=== PATIENT | female | born 1955 | race Caucasian/White ===

== ENCOUNTER 2019-01-12 20:48 | Inpatient (IN) | payer OTHER ==
[~2019-01-12] VITALS: Ht 154.9 cm; Wt 93.0 kg
[~2019-01-12 20:48] MED LIST: ATENOLOL 100MG100 M2; BACTRIM DS TAB1 EACH; CARDIZEM CD360 MG; FLOMAX PO; LEXAPRO 10 MG T10 MG; NORCO 5-325 TA1 EACH PO; PHENAZOPYRIDIN200 M2
[2019-01-12 23:12] VITALS: BP 120/71
[2019-01-12 23:34] LABS: HEMATOCRIT 43.5 % (37.0-47.0); HEMOGLOBIN 14.8 gm/dL (12.0-15.0); MCH 29.2 pg (26.0-34.0); RBC 5.06 mil/uL (4.20-5.00); RDW 12.7 % (10.5-14.5); WBC 9.1 thou/uL (4.0-11.0)
[2019-01-12 23:48] LABS: PROTIME 10.4 Seconds (9.3-11.4)
[2019-01-13] VITALS (16 sets, daily range): BP systolic 115–149; BP diastolic 70–91
[2019-01-13] MEDS ORDERED: NORVASC5 MG PO (00:45)
[2019-01-13] MEDS ORDERED: ATORVASTATIN CA40 MG PO (00:45)
[2019-01-13] MEDS ORDERED: CYCLOBENZAPRINE5 MG PO (00:46)
[2019-01-13] MEDS ORDERED: HYDROCHLOROTHIA25 M2 PO (00:46)
[2019-01-13] MEDS ORDERED: ZESTRIL40 MG PO (00:47)
[2019-01-13] MEDS ORDERED: OMEPRAZOLE40 MG PO (00:48)
[2019-01-13] MEDS ORDERED: LIDOCAINE PAIN1 EACH TP (00:49)
[2019-01-13] MEDS ORDERED: NAPROSYN500 MG PO (00:49)
--- NOTE | 2019-01-13 05:00 | NUR ---
PT ARRIVED TO THE UNIT FROM [facility] AT 2245. VSS. PT A&0X4. SHE WAS ON A HEPARIN DRIP AT 7ML/HR. PT PLACED ON THE HEPARIN PROTOCOL BY MIKEY GONZALES, APTT CHECKED, AND DOSED PER HEPARIN FLOW SHEET DOSING PROTOCOL. NEXT APTT DUE AT 0745. DR BENITEZ NOTIFIED PRIOR TO PT'S ARRIVAL HE ORDERED EKG AND TROPONIN WHEN THE PT ARRIVES AND IN THE AM. HE WAS NOTIFIED OF TROP AND EKG RESULTS AND HE GAVE ORDERS FOR 325MG ASA, 80MG LIPITOR AND TO OBTAIN CONSENT FOR HEART CATH THIS AM. PT HAS BEEN NPO SINCE MIDNIGHT. PT WAS TEARFUL ABOUT PLANNED INTERVENTION BUT WAS REASSURED AND TYLENOL PM WAS GIVEN FOR SLEEP PER HER REQUEST. PT RESTED WELL ALL NIGHT. NO COMPLAINTS OF DISTRESS OR CHEST PAIN SINCE ARRIVAL ON THE UNIT SHE IS STABLE, WILL CONTINUE TO MONITOR PER POC.
--- NOTE | 2019-01-13 07:22 | EKG ---
[address] [address] ELECTROCARDIOGRAM REPORT Name: CARBALLOLEANNA Room #: 207- ADM IN M.R.#: [id number] ������������������ Admission: 01/12/19 ������������������ Attend Phys: Waldo Yang MD Discharge: ������������������ Date of : 55 Report #: [id number] ����������������������������������������������������������������� [id number] THIS REPORT FOR: //name// [facility] Test Date: 2019-01-12 Test Time: 23:15:13 Pat Name: LEANNA CARBALLO Department: Room: 207 Gender: F Prepress Manager: Ramon : 1955 Requested By: Tony Hall Order Number: [id number] MD: Humza Theodore Measurements Intervals [place] Rate: 68 P: 35 DE: 143 QRS: -16 QRSD: 86 T: 24 QT: 419 QTc: 446 Interpretive Statements Sinus rhythm Nonspecific ST segment abnormality Compared to ECG 02/15/2002 19:24:[address] segment abnormality is now present Electronically Signed On 01-13-2019 7:22:08 CDT by Humza Theodore [email or web address] ��������������������������������������������� <ELECTRONICALLY SIGNED> ���������������������������������������� By: Humza Theodore MD, [facility] ��������������������������������������������� 01/13/19 0722 2315 2315 Humza Theodore MD, [facility] /EPI
[2019-01-13 08:25] LABS: CREATININE 0.6 mg/dL (0.6-1.0)
--- NOTE | 2019-01-13 12:53 | 2DMMODE ---
[place] [address] [facility] [place] [address] 2 D/M-MODE ECHOCARDIOGRAM Name: CARBALLOLEANNA Room #: 207-P ADM IN M.R.#: [id number] ������������� Admission: 01/12/19 ������������� Attend Phys: Waldo Yang MD Discharge: ��� ������������� ��� Date of : 55 Date of Service: 01/13/19 1253 �� Report #: [id number] �������� ��������������������������������������������[id number] THIS REPORT FOR: //name// APPROVED REPORT Study performed: 01/13/2019 11:45:49 EXAM: Comprehensive 2D, Doppler, and color-flow Echocardiogram Patient Location: Bedside Room #: [facility] Status: routine BSA: 1.89 HR: 71 bpm BP: 146/89 mmHg Rhythm: NSR Other Information Study Quality: Adequate Technically limited study due to inability to position patient, post cath. Indications Non STEMI CAD Hypertension/HDD 2D Dimensions RVDd: 30.08 mm IVSd: 11.18 (7-11mm) LVOT Diam: 20.09 (18-24mm) LVDd: 46.53 mm PWd: 9.68 (7-11mm) Ascending Ao: 23.60 (22-36mm) LVDs: 33.37 (25-40mm) Aortic Root: 28.22 mm IVC: 14.00 mm Volumes Left Atrial Volume (Systole) Single Plane 4CH: 45.23 mL Single Plane 2CH: 52.51 mL LA ESV Index: 27.00 mL/m2 Aortic Valve AoV Peak Charli.: 1.73 m/s AO Peak Gr.: 11.97 mmHg LVOT Max P.37 mmHg LVOT Max V: 0.92 m/s REGI Vmax: 1.68 cm2 [facility] [place] [address] [place] [address] 2 D/M-MODE ECHOCARDIOGRAM Name: LEANNA CARBALLO Dheeraj Room #: 207-[facility] IN [facility]#: [id number] ������������� Admission: 01/12/19 ������������� Attend Phys: Waldo Yang MD Discharge: ��� ������������� ��� Date of : 55 Date of Service: 01/13/19 1253 �� Report #: [id number] �������� ��������������������������������������������[id number] Mitral Valve E/A Ratio: 0.8 MV Decel. Time: 249.39 ms MV E Max Charli.: 0.86 m/s MV A Charli.: 1.03 m/s MV PHT: 72.32 ms IVRT: 110.73 ms Pulmonary Valve PV Peak Charli.: 1.11 m/s PV Peak Gr.: 4.98 mmHg Pulmonary Vein P Vein S: 0.42 m/s P Vein A: 0.19 m/s P Vein D: 0.30 m/s P Vein A Dur.: 101.5 msec P Vein S/D Ratio: 1.40 Tricuspid Valve TR Peak Charli.: 2.73 m/s RAP Estimate: 5.00 mmHg TR Peak Gr.: 29.81 mmHg PA Pressure: 35.00 mmHg Left Ventricle The left ventricle is normal size. There is normal LV segmental wall motion. There is normal left ventricular wall thickness. The left ventricular systolic function is normal. The left ventricular ejection fraction is within the normal range. LVEF is 55-60%. Mild diastolic dysfunction Right Ventricle The right ventricle is normal size. The right ventricular systolic function is normal. Atria The left atrium size is normal. The right atrium size is normal. Aortic Valve Aortic valve is mildly calcified, trileaflet. Trace aortic regurgitation. There is no aortic valvular stenosis. Mitral Valve The mitral valve is normal in structure. Trace to mild mitral regurgitation. No evidence of mitral valve stenosis. Tricuspid Valve The tricuspid valve is normal in structure. Mild tricuspid [address] [address] 2 D/M-MODE ECHOCARDIOGRAM Name: STAR CARBALLOKathleen Esqueda Room #: 207-P [facility] IN [facility]#: [id number] ������������� Admission: 01/12/19 ������������� Attend Phys: Waldo Yang MD Discharge: ��� ������������� ��� Date of : 55 Date of Service: 01/13/19 1253 �� Report #: [id number] �������� ��������������������������������������������[id number] regurgitation. PAP is estimated at 35 mmHg. Pulmonic Valve The pulmonary valve is normal in structure. There is no pulmonic valvular regurgitation. Great Vessels The aortic root is normal in size. The ascending aorta is normal in size. IVC is normal in size and collapses >50% with inspiration. Pericardium There is no pericardial effusion. <Conclusion> The left ventricular systolic function is normal. There is normal LV segmental wall motion. LVEF is 55-60%. Mild diastolic dysfunction Aortic valve is mildly calcified, trileaflet. Trace aortic regurgitation, no stenosis. The mitral valve is normal in structure. Trace to mild mitral regurgitation. Mild tricuspid regurgitation. Pulmonary artery pressure estimated at 35 mmHg. There is no pericardial effusion. ��������������������������������������������� <ELECTRONICALLY SIGNED> ���������������������������������������� By: Humza Theodore MD, FACC ��������������������������������������������� 01/13/19 1253 1253 1253 Humza Theodore MD, FACC /INF
[2019-01-13 17:15] LABS: URINE BILIRUBIN NEGATIVE (Negative); URINE BLOOD NEGATIVE (Negative); URINE CLARITY CLEAR; URINE COLOR YELLOW; URINE GLUCOSE-RANDOM* NEGATIVE (Negative); URINE KETONES NEGATIVE (Negative); URINE LEUKOCYTES-REFLEX NEGATIVE (Negative); URINE NITRITE-REFLEX NEGATIVE (Negative); URINE PROTEIN (DIPSTICK) NEGATIVE (Negative); URINE UROBILINOGEN 0.2 E.U./dl (0.2-1.0)
--- NOTE | 2019-01-13 17:40 | NUR ---
ASSESSMENT DOCUMENTED. PT ALERT AND ORIENTED. VSS. HAD CARDIAC CARTH THIS AM. NO INTERVENTION DONE. PLAN TO HAVE CABG ON THURSDAY. HEPARIN DRIP D/C. PRN PAIN MED GIVEN FOR JOSEPH WITH PARTIAL RELIEF. WILL CONTINUE TO MONITOR.
[2019-01-13 18:48] LABS: ABSOLUTE NEUTROPHILS 4.7 thou/uL (1.4-8.2); BASOPHILS 0.7 % (0.0-2.0); EOSINOPHILS 2.1 % (0.0-3.0); HEMATOCRIT 41.6 % (37.0-47.0); HEMOGLOBIN 13.8 gm/dL (12.0-15.0); LYMPHOCYTES 29.6 % (24.0-44.0); MCH 28.8 pg (26.0-34.0); MCHC 33.2 g/dL (28.0-37.0); MCV 86.6 fL (80.0-100.0); MONOCYTES 4.9 % (1.0-8.0); PLATELET COUNT 225 thou/uL (150-400); POLYS 62.7 % (36.0-66.0); RDW 13.1 % (10.5-14.5); WBC 7.5 thou/uL (4.0-11.0)
[2019-01-13 19:18] LABS: ALBUMIN 3.5 g/dL (3.4-5.0); CREATININE 0.9 mg/dL (0.6-1.0); POTASSIUM 3.9 mmol/L (3.5-5.1); TOTAL BILIRUBIN 0.6 mg/dL (<0.1-1.0); TOTAL PROTEIN 6.9 g/dL (6.4-8.2)
[2019-01-13 23:07] LABS: GLYCOHEMOGLOBIN (HGB A1C) 5.7 % (4.8-5.6)
[2019-01-14 00:11] VITALS: BP 114/66
[2019-01-14 04:40] VITALS: BP 114/65
[2019-01-14 05:32] LABS: CHOLESTEROL 113 mg/dL (<200); HDL CHOLESTEROL 38 mg/dL (>40); LDL CHOLESTEROL 50 mg/dL (<100); TRIGLYCERIDE 125 mg/dL (<150); VLDL 25 mg/dL (<40)
[2019-01-14 05:57] LABS: SERUM ASSESSMENT Clear
--- NOTE | 2019-01-14 06:09 | NUR ---
ASSUMED PT CARE AT 1900. VSS. PT A&OX4. FAMILY IN ROOM AFT SHIFT CHANGE. PT IS ANXIOUS ABOUT UP COMING OPEN HEART; FREQUENT REASSURANCE NEEDED. PT COMPLAINED OF TENDERNESS IN RIGHT GROIN, TYLENOL GIVEN, COMPLETE PAIN RELEIF REPORTED. R GROIN SITE CDI. PT IS STABLE, NO COMPLAINTS OF PAIN OR DISTRESS, WILL CONTINUE TO MONITOR PER POC.
[2019-01-14 07:46] VITALS: BP 130/83
[2019-01-14 09:38] LABS: HEMATOCRIT 44.4 % (37.0-47.0); HEMOGLOBIN 14.8 gm/dL (12.0-15.0); MCH 28.9 pg (26.0-34.0); MCHC 33.3 g/dL (28.0-37.0); MCV 86.6 fL (80.0-100.0); RBC 5.12 mil/uL (4.20-5.00); RDW 12.8 % (10.5-14.5); WBC 7.3 thou/uL (4.0-11.0)
[2019-01-14 09:54] LABS: APTT 29.7 Seconds (24.5-32.8); PROTIME 10.1 Seconds (9.3-11.4)
--- NOTE | 2019-01-14 14:45 | NUR ---
Case opened to follow for dc planning. Medical Management Specialist visited with the pt at bedside. She is a&ox4 and indicates that she lives with her boyfriend in [place], [place]. They have ramp to enter the home and everything is on the main level. She denies any dme or hh history. She took early shelter and is . She drives and was indep with gait and adl's. She reports that her pcp is [facility] in [place](Dr. Dudley). Pt to have CABG on Thursday and she is anxious about surgery. Support provided. AD/DPOA information discussed and provided as well. She would like her dtr Mabel to be her dpoa if needed. She will ask for a notary if she wishes to complete prior to her surgery. She indicates that her pcp told her she needed to see a body maker machine setter but her insurance denied the request. She is planning on staying with her dtr for 2-3 wks at dc. Her dtr lives in [place] and can assist with f/u appts. Cm role introduced. Pt hopeful she will be able to dc home with outpt f/u. Her insurance plan has limited benefits/coverage. Insurance would need to be contacted should the pt need HH, rehab or snf. Will follow along.
[2019-01-14 16:38] VITALS: BP 148/97
--- NOTE | 2019-01-14 18:09 | CATHLAB ---
[facility] [place] [address] INVASIVE PROCEDURE REPORT Name: LEANNA CARBALLO Dheeraj Room #: 207-P [facility] IN ..#: [id number] ������������� Admission: 01/12/19 ������������� Attend Phys: Waldo Yang MD Discharge: ��� ������������� ��� Date of : 55 Date of Service: 01/14/19 1809 �� Report #: [id number] �������� ��������������������������������������������[id number] THIS REPORT FOR: //name// APPROVED REPORT Study performed: 01/13/2019 09:09:20 Patient Details The patient is a 63 year-old female Event Personnel Tony Hall Branch Billing Payroll Clerk, Sarahy Michaels RTR, Eren Gaxiola Roberta Monitor, Yina Strauss RN RN, Dionisio Jaime ruching machine operator Performed Left Heart Cath w/or w/o Coronaries [id number] [facility] Indication Chest pain Procedure Narrative The Right Groin^ was infiltrated with 1% Lidocaine subcutaneous anesthesia. A PINNACLE 6FR Sheath #[id number] sheath was inserted into the RFA 6F^. Coronary angiography was performed using coronary diagnostic catheters. The right coronary system was accessed and visualized with a JR4 catheter. The left coronary system was accessed and visualized with a JL4 catheter. The left ventricle was accessed and visualized with a PIGTAIL catheter. Closure device was deployed with a Fr MYNXGRIP 6/7F #[id number]. The patient tolerated the procedure well and there were no complications associated with the procedure. There was no hematoma. Intraoperative Conscious Sedation Sedation start time: 09 Case end Time: 1010 Fentanyl 100 mcg Versed 2 mg Fluoro Time: 2.51 minutes Dose: DAP 8199.80 cGycm2 Contrast Type and Amount: Omnipaque 140 ml Hemodynamics The aortic pressure is 133/67 mmHg with a mean of 98 mmHg. The left ventricular pressure is 136/9 mmHg with a mean of mmHg. The left [facility] [place] [address] [place] [address] INVASIVE PROCEDURE REPORT Name: LEANNA CARBALLO Room #: 207-P [facility] IN ..#: [id number] ������������� Admission: 01/12/19 ������������� Attend Phys: Waldo Yang MD Discharge: ��� ������������� ��� Date of : 55 Date of Service: 01/14/19 1809 �� Report #: [id number] �������� ��������������������������������������������[id number] ventricular end diastolic pressure is 20 mmHg. Conclusion #1 short left main with evidence of distal calcification giving rise to LAD and circumflex #2 heavily calcified proximal LAD. Diffuse disease distally less calcification the distal half of this vessel. 70-80% proximal eccentric lesions are noted #3 subtotal ostial circumflex which appears to be a large area of calcification calcium deposit filling a large OM branch slowly. Does not appear to be thrombus I would've perceive this to be calcification involving the ostial subtotal segment #4 dominant right coronary artery proximal calcification and mid vessel calcification is noted but not occlusive giving rise to a posterior lateral branch which widely patent and a high-grade proximal PDA within the mid distal PDA is preserved collaterally filling the OM branch. #5 left internal mammary injection was performed this is a widely patent large vessel. #6 normal left ventricular size and systolic function is normal EF 60% #7 abdominal aorta with mild plaquing and calcification no aneurysm or occlusive disease renal arteries and iliac system appear widely patent Recommendations and plan: Patient will need revascularization by bypass due to significant proximal calcification. These lesions would not be amenable or do well with stenting. Relatively good decent mid to distal targets are noted for bypass. Transfer to CCU pain-free hemodynamically stable. CV surgical consultation. ��������������������������������������������� <ELECTRONICALLY SIGNED> ���������������������������������������� By: Tony Hall MD, FACC ��������������������������������������������� 01/14/191808 08 08 Tony Hall MD, FACC /INF
--- NOTE | 2019-01-14 18:16 | NUR ---
ASSUMED CARE @ 0645. PT ALERT AND ORIENTED. VSS. RECEIVED PRN PAIN MED FO JOSEPH WITH PARTIAL RELIEF. HEPARIN DRIP STARTED. UP ADLIB. NO CARDIAC DISTRESS NOTED. WILL CONTINUE TO MONITOR.
[2019-01-14 19:36] VITALS: BP 157/79
[2019-01-15 01:10] LABS: GLYCOHEMOGLOBIN (HGB A1C) 5.8 % (4.8-5.6)
--- NOTE | 2019-01-15 03:02 | NUR ---
ASSUMED PT CARE AT 1900. PT A/OX4, VITAL SIGNS STABLE, ASSESSMENT CHARTED. NO COMPLAINTS OF PAIN/CHEST PAIN. DISCUSSED IMPORTANCE OF CABG. PT STILL A LITTLE NERVOUS ABOUT PROCEDURE. PT OTHERWISE RESTED ELL THROUGH THE NIGHT. PROGRESSING TOWARD PLAN OF CARE. WILL CONTINUE TO MONITOR.
[2019-01-15 04:07] VITALS: BP 127/64
[2019-01-15 05:33] LABS: HEMATOCRIT 43.1 % (37.0-47.0); HEMOGLOBIN 14.6 gm/dL (12.0-15.0); MCHC 33.8 g/dL (28.0-37.0); MCV 85.7 fL (80.0-100.0); RBC 5.02 mil/uL (4.20-5.00); RDW 12.7 % (10.5-14.5); WBC 8.7 thou/uL (4.0-11.0)
[2019-01-15 07:46] VITALS: BP 148/86
[2019-01-15 11:38] VITALS: BP 155/94
[2019-01-15 16:30] VITALS: BP 151/96
--- NOTE | 2019-01-15 18:22 | NUR ---
PT ALERT AND ORIENTED. VSS. RECEIVED PRN PAIN MED FOR JOSEPH WITH RELIEF. NO CARDIAC DISTRESS NOTED. WILL CONTINUE TO MONITOR.
[2019-01-15 20:30] VITALS: BP 147/94
[2019-01-16] VITALS (7 sets, daily range): BP systolic 123–185; BP diastolic 67–101
--- NOTE | 2019-01-16 03:18 | NUR ---
ASSUMED PT CARE AT 1900. PT A/OX4, VITAL SIGNS STABLE, ASSESSMENT CHARTED. NO COMPLAINTS OF CHEST PAIN/PAIN. BATH PROVIDED. HEPARIN DRIP MAINTAINED. PT RESTED WELL THROUGH THE NIGHT. PROGRESSING TOWARD PLAN OF CARE. WILL CONTINUE TO MONITOR.
--- NOTE | 2019-01-16 12:06 | HC ---
[facility] [place] [address] CONSULTATION Name: CARBALLOLEANNA Silvestre Dheeraj Room #: 207-P ADM IN M.R.#: [id number] Admission: 01/12/19 ������������������ Attend Phys: Waldo Yang MD Discharge: ������������������ Date of : 55 Report #: [id number] THIS REPORT FOR: //name// CC: [facility] physician/PCP Waldo Yang DATE OF SERVICE: 01/13/2019 We were asked by Dr. Hall to see the patient. HISTORY OF PRESENT ILLNESS: The patient is a 63-year-old with coronary artery disease. The patient states that she has had chest pain on and off for the last 2 years, but it has become a daily occurrence in the last 2 weeks. Specifically, the patient has chest pain with low levels of exertion. The patient does not describe rest pain to me. We note that cardiac catheterization today by Dr. Hall showed severe 3-vessel coronary artery disease, including 99% circumflex stenosis, 70% LAD and 90% PDA lesions. Left ventricular function looked satisfactory overall. We note that the patient presented to [place] with a non-STEMI infarct and was sent here following that for cardiac evaluation. PAST MEDICAL HISTORY: Past history is significant for hypertension and hyperlipidemia. FAMILY HISTORY: The patient states that family history is positive for coronary artery disease, in that mother had bypass surgery in her 60s. MEDICATIONS: Medications at home include amlodipine, atorvastatin, cyclobenzaprine, hydrochlorothiazide, Zestril, omeprazole, lidocaine topical, I believe, and Naprosyn. ALLERGIES: None known. REVIEW OF SYSTEMS: CONSTITUTIONAL: Denies fever. HEENT: No new problems with headaches, vision problems, hearing problems or sore throat. RESPIRATORY: No new shortness of breath. CARDIAC: As mentioned, chest pain. Denies palpitations. GASTROINTESTINAL: No nausea, vomiting or blood. GENITOURINARY: No urgency, frequency or blood. MUSCULOSKELETAL: No new bone or joint problems. SKIN: No rash or infection. NEUROLOGIC: No motor or sensory dysfunction. [facility] [address] [place] [address] CONSULTATION Name: LEANNA CARBALLO Dheeraj Room #: [address] [place] [address] IN .R.#: [id number] Admission: 01/12/19 ������������������ Attend Phys: Waldo Yang MD Discharge: ������������������ Date of : 55 Report #: [id number] PSYCHIATRIC: No history of psychosis, anxiety and depression. ENDOCRINE: No goiter. No tremors. PHYSICAL EXAMINATION: VITAL SIGNS: Temperature 36.5, heart rate 75, respiratory rate 18 and blood pressure 131/82. GENERAL: The patient is lying in bed, without distress, endomorphic habitus, obese. HEENT: Normocephalic. No scleral icterus, no arcus. Pupils are round and equal. Gaze conjugate. NECK: No mass, no bruit. CHEST: Clear to auscultation. HEART: Rhythm regular. No murmurs. ABDOMEN: Soft. No mass, no tenderness. EXTREMITIES: No clubbing, cyanosis or edema. A 1+ distal pulses, 2+ popliteal pulses. No obvious saphenous vein problems. PSYCHIATRIC: Shows insight into problem and seems appropriate as per affect. ASSESSMENT AND PLAN: The patient has important 3-vessel coronary artery disease. I agree that coronary artery bypass surgery is appropriate for this patient with 3-vessel disease. The risks and details of coronary artery bypass surgery were discussed. Risks include, but are not limited to bleeding, infection, anesthesia risks, heart and lung problems, stroke and . Options and alternatives were reviewed. We have organized surgery for Thursday and expect the patient will stay on heparin until then. Thank you for the consult. ��������������������������������������������� <ELECTRONICALLY SIGNED> ���������������������������������������� By: Ronal Worrell MD ��������������������������������������������� 01/16/19 1206 1625 1124 Ronal Worrell MD /nt
--- NOTE | 2019-01-16 17:04 | NUR ---
PT ALERT AND ORIENTED. VSS. DENIED HAVING PAIN. ON HEPARIN DRIP. ORDERS GIVEN TO DISCONTINUE HEPARIN WHEN PT GOES TO SURGERY IN THE MORNING. SEE DR. GARCIAS NOTE. CONSENT SIGNED. NO CONCERNS AT THIS TIME. WILL CONTINUE TO MONITOR.
[2019-01-17] VITALS (24 sets, daily range): BP systolic 92–156; BP diastolic 41–87
[2019-01-17 03:03] LABS: HEMATOCRIT 41.8 % (37.0-47.0); HEMOGLOBIN 14.2 gm/dL (12.0-15.0); MCH 29.2 pg (26.0-34.0); MCV 86.1 fL (80.0-100.0); RBC 4.86 mil/uL (4.20-5.00); RDW 12.8 % (10.5-14.5); WBC 7.1 thou/uL (4.0-11.0)
--- NOTE | 2019-01-17 05:24 | NUR ---
ASSUMED PT CARE AT 1900. PT A/OX4, A LITTLE ANXIOUS ABOUT SURGERY. VITAL SIGNS STABLE, WITH SBP ELEVATED. ASSESSMENT CHARTED. FIELD SPEC NOTIFIED OF ELEVATED BP, MEDICATION ORDERED WHICH SEEMED TO WORK WELL. AT ABOUT 2300, PT COMPLAINED OF EXTREME DIZZINESS AND UNABLE TO HOLS A STEADY GAIT. BP WAS IN THE 160'S, LOWER THAN WHAT IT WAS PRIOR TO WHEN NORVACS WAS GIVEN. PT WAS ASSITED TO BED AND ENCOURGAED NOT TO GET OUT OF BED IF DIZZINESS PERSISTS. FREQUENT BP CHESKS PERFORMED. BP SEEMED TO BE IMPROVING BUT PT KEPT COMPLAINING OF DIZZESS AND BEING NAUSEOUS. FIELD SPEC WAS CALLED AND NOTIFIED AGAIN. CT OF HEAD WAS ORDERED AND RESULTS WERE NORMAL. BLOOD SUGAR WAS 134. CHLOROHEXIDIN BATH GIVEN. PT WAS ABLE TO GET SOME SLEEP BUT DIZZINESS WORSENS WITH POSITION CHANGE. PT STATES THAT SHE SUSPECTS ITS FOOD POISSONING, FROM THE HOTDOG SHE ATE. PT NPO SINCE MIDNIGHT. PT CURRENTLY RESTING IN BED. ENCOURGAED TO CALL IF DIZZINESS CONTINUE TO PERSIST. WILL CONTINUE TO MONITOR.
[2019-01-17 12:30] LABS: HEMATOCRIT 27.6 % (37.0-47.0); MCH 29.9 pg (26.0-34.0); MCHC 34.5 g/dL (28.0-37.0); MCV 86.4 fL (80.0-100.0); RBC 3.19 mil/uL (4.20-5.00); RDW 12.7 % (10.5-14.5); WBC 16.5 thou/uL (4.0-11.0)
[2019-01-17 12:36] LABS: HEMOGLOBIN 9.5 gm/dL (12.0-15.0)
[2019-01-17 12:43] LABS: APTT 36.9 Seconds (24.5-32.8); FIBRINOGEN 216.8 mg/dL (210-360); PROTIME 16.7 Seconds (9.3-11.4)
[2019-01-17 12:45] LABS: INR 1.6
[2019-01-17 13:29] LABS: POC BE 1 mmol/L (-2.0 to +3.0); POC CA IONIZED 4.7 mg/dL (4.5-5.3); POC GLUCOSE 184 mg/dL (70-99); POC HCO3 26.6 mmol/L (22.0-26.0); POC HEMOGLOBIN 12.6 g/dL (12.0-15.0); POC POTASSIUM 4.6 mmol/L (3.5-5.1); POC SODIUM 137 mmol/L (136-145); POC pCO2 48.4 mmHg (35.0-45.0); POC pH 7.348 (7.360-7.450)
[2019-01-17 13:29] LABS: POC BE 1 mmol/L (-2.0 to +3.0); POC CA IONIZED 4.2 mg/dL (4.5-5.3); POC GLUCOSE 205 mg/dL (70-99); POC HCO3 25.4 mmol/L (22.0-26.0); POC HEMOGLOBIN 10.9 g/dL (12.0-15.0); POC POTASSIUM 4.5 mmol/L (3.5-5.1); POC SODIUM 136 mmol/L (136-145); POC pCO2 40.7 mmHg (35.0-45.0); POC pH 7.403 (7.360-7.450)
[2019-01-17 13:29] LABS: POC BE 1 mmol/L (-2.0 to +3.0); POC CA IONIZED 4.9 mg/dL (4.5-5.3); POC GLUCOSE 139 mg/dL (70-99); POC HCO3 25.4 mmol/L (22.0-26.0); POC HEMOGLOBIN 12.9 g/dL (12.0-15.0); POC POTASSIUM 4.6 mmol/L (3.5-5.1); POC SODIUM 138 mmol/L (136-145); POC pCO2 39.6 mmHg (35.0-45.0); POC pH 7.416 (7.360-7.450)
[2019-01-17 13:30] LABS: POC BE -4 mmol/L (-2.0 to +3.0); POC CA IONIZED 5.3 mg/dL (4.5-5.3); POC GLUCOSE 191 mg/dL (70-99); POC HCO3 21.2 mmol/L (22.0-26.0); POC HEMOGLOBIN 9.2 g/dL (12.0-15.0); POC POTASSIUM 3.7 mmol/L (3.5-5.1); POC SODIUM 139 mmol/L (136-145); POC pCO2 38.5 mmHg (35.0-45.0); POC pH 7.349 (7.360-7.450)
[2019-01-17 13:30] LABS: POC BE -1 mmol/L (-2.0 to +3.0); POC CA IONIZED 4.3 mg/dL (4.5-5.3); POC GLUCOSE 209 mg/dL (70-99); POC HCO3 23.8 mmol/L (22.0-26.0); POC HEMOGLOBIN 9.5 g/dL (12.0-15.0); POC POTASSIUM 4.2 mmol/L (3.5-5.1); POC SODIUM 137 mmol/L (136-145); POC pCO2 39.4 mmHg (35.0-45.0); POC pH 7.389 (7.360-7.450)
[2019-01-17 13:30] LABS: POC BE 1 mmol/L (-2.0 to +3.0); POC CA IONIZED 4.2 mg/dL (4.5-5.3); POC GLUCOSE 218 mg/dL (70-99); POC HCO3 25.4 mmol/L (22.0-26.0); POC HEMOGLOBIN 9.9 g/dL (12.0-15.0); POC POTASSIUM 4.2 mmol/L (3.5-5.1); POC SODIUM 138 mmol/L (136-145); POC pCO2 39.2 mmHg (35.0-45.0)
[2019-01-17 13:30] LABS: POC BE -5 mmol/L (-2.0 to +3.0); POC CA IONIZED 5.2 mg/dL (4.5-5.3); POC GLUCOSE 158 mg/dL (70-99); POC HEMOGLOBIN 9.9 g/dL (12.0-15.0); POC POTASSIUM 3.6 mmol/L (3.5-5.1); POC SODIUM 140 mmol/L (136-145); POC pCO2 38.6 mmHg (35.0-45.0); POC pH 7.344 (7.360-7.450)
[2019-01-17 13:36] LABS: PLATELET COUNT ND thou/uL (150-400)
[2019-01-17 14:12] LABS: MCH 29.1 pg (26.0-34.0); MCHC 33.9 g/dL (28.0-37.0); MCV 85.9 fL (80.0-100.0); RBC 4.07 mil/uL (4.20-5.00); RDW 12.3 % (10.5-14.5); WBC 19.8 thou/uL (4.0-11.0)
[2019-01-17 14:16] LABS: HEMOGLOBIN 11.9 gm/dL (12.0-15.0)
[2019-01-17 14:20] LABS: HCO3 22.1 mmol/L (22.0-26.0); PCO2 44.2 mmHg (35.0-45.0); PO2 85.2 mmHg (80.0-100.0); sO2 95.6 % (92.0-98.0)
[2019-01-17 14:21] LABS: pH 7.316 (7.360-7.450)
[2019-01-17 14:27] LABS: CALCIUM 9.2 mg/dL (8.5-10.1); CREATININE 0.9 mg/dL (0.6-1.0); POTASSIUM 4.1 mmol/L (3.5-5.1)
--- NOTE | 2019-01-17 15:07 | NUR ---
PT ARRIVED FROM OR AT 1350 WITH NURSING STAFF, ANETHSTESIA AND SURGEON. INSULIN GTT OFF. TITRATE SEDATION. START LEVO GTT FOR BP SUPPORT. PLACED ON MONITOR. SWAN NOT FLOATED INTO CORRECT POSITION, UNABLE TO GET CI,CO OR SVR. CHEST TUBES, LATERAL AND MEDS, WITH ADEQUATE OUTPUT ON -20 SUCTION. LABS SENT.
[2019-01-17 15:20] LABS: APTT 31.3 Seconds (24.5-32.8); INR 1.1; PROTIME 11.6 Seconds (9.3-11.4)
--- NOTE | 2019-01-17 15:20 | NUR ---
Received consult for diet education. S/P CABG on 01/17. Hx HTN, HLD. A1C is 5.8. Will follow up after transfer out ICU and more appropriate time for nutrition education.
[2019-01-17 19:53] LABS: BE(vivo) -2.9 mmol/L (-2 to +3); PCO2 33.7 mmHg (35.0-45.0); PO2 66.9 mmHg (80.0-100.0); pH 7.413 (7.360-7.450); sO2 93.7 % (92.0-98.0)
--- NOTE | 2019-01-17 20:06 | NUR ---
Pt started on CPAP trial at 1900. ABG drawn at 1745 within acceptable parameters, pH normal. Pt extubated at 1758.
[2019-01-18] VITALS (37 sets, daily range): BP systolic 79–143; BP diastolic 38–70
[2019-01-18 05:25] LABS: HEMATOCRIT 33.9 % (37.0-47.0); HEMOGLOBIN 11.3 gm/dL (12.0-15.0); MCHC 33.4 g/dL (28.0-37.0); RBC 3.89 mil/uL (4.20-5.00); RDW 12.7 % (10.5-14.5); WBC 15.3 thou/uL (4.0-11.0)
[2019-01-18 05:35] LABS: CALCIUM 8.7 mg/dL (8.5-10.1); CREATININE 0.9 mg/dL (0.6-1.0); MAGNESIUM 2.4 mg/dL (1.8-2.4); POTASSIUM 4.4 mmol/L (3.5-5.1)
--- NOTE | 2019-01-18 06:15 | NUR ---
END OF SHIFT SUMMARY: Pt slowly progressing toward goals. Pt extubated at 1958; has been on 8 L HFC most of the night but was increased to 10 L at 0600 due to persistent O2 sat of 88%. Pt now 91%. Pt c/o of pain most of night. PRN pain med given and though pt still rates pain 10/10, she appears more comfortable. Monitor remains sinus rhythm rate 70-80's. BP well controlled with Cardene at 5 mg/hr. [place] cath dc'd at 0500. Right radial arterial a-line intact with good wave form. Pt taking clear liquids well; Zofran given x1 for nausea around midnight with adequate relief obtained. Sternal and left leg drsgs remain clean, dry and intact. Mediastinal tubes x2 and left plural tube x1 remain patent to -20 cmH2O, no air leak or crepitus. Mediastinal tubes had 230 cc sero-sanguinous drainage, left plural had 76 cc of sero-sanguinous drainage. Urine output adequate, 600 cc this shift.
[2019-01-18 08:11] LABS: BE(vivo) -4.6 mmol/L (-2 to +3); HCO3 20.7 mmol/L (22.0-26.0); PCO2 39.4 mmHg (35.0-45.0); pH 7.339 (7.360-7.450); sO2 81.4 % (92.0-98.0)
[2019-01-18 08:13] LABS: PO2 47.8 mmHg (80.0-100.0)
--- NOTE | 2019-01-18 09:12 | EKG ---
[place] [address] [facility] [employer] [place] [address] ELECTROCARDIOGRAM REPORT Name: KAITLEANNA Room #: 242-P ADM IN M.R.#: [id number] ������������������ Admission: 01/12/19 ������������������ Attend Phys: Waldo Yang MD Discharge: ������������������ Date of : 55 Report #: [id number] ����������������������������������������������������������������� [id number] THIS REPORT FOR: //name// [facility] Test Date: 2019-01-17 Test Time: 14:21:25 Pat Name: LEANNA CARBALLO Department: Room: [facility] Gender: F Shop Technician: Fatmata BRANCH : 1955 Requested By: Mk Quintanilla Order Number: [id number] MD: Humza Theodore Measurements Intervals [place] Rate: 81 P: 46 NJ: 150 QRS: 0 QRSD: 88 T: 43 QT: 406 QTc: 472 Interpretive Statements Sinus rhythm Early R-wave progression Compared to ECG 01/12/2019 23:15:13 ST (T wave) deviation no longer present Electronically Signed On 01-18-2019 9:12:27 CDT by Humza Theodore [email or web address] ��������������������������������������������� <ELECTRONICALLY SIGNED> ���������������������������������������� By: Humza Theodore MD, [facility] ��������������������������������������������� 01/18/19 0912 1421 142 Humza Theodore MD, [facility] /EPI
[2019-01-18 09:50] LABS: BE(vivo) -4.9 mmol/L (-2 to +3); HCO3 20.3 mmol/L (22.0-26.0); PCO2 37.7 mmHg (35.0-45.0); PO2 77.3 mmHg (80.0-100.0); pH 7.348 (7.360-7.450); sO2 94.9 % (92.0-98.0)
--- NOTE | 2019-01-18 16:11 | EKG ---
[address] [address] ELECTROCARDIOGRAM REPORT Name: LEANNA CARBALLO Room #: 242- ADM IN M.R.#: [id number] ������������������ Admission: 01/12/19 ������������������ Attend Phys: Waldo Yang MD Discharge: ������������������ Date of : 55 Report #: [id number] ����������������������������������������������������������������� [id number] THIS REPORT FOR: //name// [facility] Test Date: 2019-01-18 Test Time: 07:57:59 Pat Name: LEANNA CARBALLO Department: Room: 242 Gender: F Meatman: MILTON : 1955 Requested By: Mk Quintanilla Order Number: [id number] MD: Abhay Sherman Measurements Intervals [place] Rate: 69 P: 97 MN: 83 QRS: 193 QRSD: 76 T: 141 QT: 473 QTc: 507 Interpretive Statements Sinus rhythm Short MN interval Electronically Signed On 01-18-2019 16:11:17 CDT by Abhay Sherman [email or web address] ��������������������������������������������� <ELECTRONICALLY SIGNED> ���������������������������������������� By: Abhay Sherman MD ��������������������������������������������� 01/18/19 1611 0757 [id number] Abhay Sherman MD /SONIA
--- NOTE | 2019-01-18 18:23 | NUR ---
PATIENT ALERT AND ORIENTED X4, PAIN MILDLY CONTROLLED WITH MEDICATION. ON OPTIFLOW NASAL CANNULA. MEDIAL CHEST TUBES REMOVED, PLEURAL CHEST TUBE INTACT. HIGUERA PATENT AND DRAINING. PATIENT UP TO THE CHAIR X1, RECIEVED PAIN MEDICATION. DID NOT TOLERATE WELL WITH DECREASING BLOOD PRESSURE. SPOKE TO PHYSICIAN, NEW ORDERS NOTED. PATIENT PLACED IN BED. BLOOD SUGAR MONITORED. NO SIGNS OF ACUTE DISTRESS NOTED AT THIS TIME. WILL CONTINUE TO MONITOR.
[2019-01-19] VITALS (15 sets, daily range): BP systolic 92–107; BP diastolic 44–62
[2019-01-19 05:55] LABS: HEMATOCRIT 28.1 % (37.0-47.0); HEMOGLOBIN 9.5 gm/dL (12.0-15.0); MCH 29.4 pg (26.0-34.0); MCHC 33.7 g/dL (28.0-37.0); MCV 87.4 fL (80.0-100.0); RBC 3.21 mil/uL (4.20-5.00); RDW 13.2 % (10.5-14.5); WBC 15.5 thou/uL (4.0-11.0)
[2019-01-19 06:12] LABS: CALCIUM 9.1 mg/dL (8.5-10.1); CREATININE 1.2 mg/dL (0.6-1.0); POTASSIUM 4.5 mmol/L (3.5-5.1)
--- NOTE | 2019-01-19 06:17 | NUR ---
Pt rested well through the night with stable VS and adequate SpO2 while weaning down on FiO2. PRN fentanyl and hydrocodones given for c/o chest "soreness" with desired effects achieved. Chest tube drainage minimal and urine output adequate for shift. Am lab results noted, continue with POC.
--- NOTE | 2019-01-19 19:21 | NUR ---
ASSUMED CARE OF PT AT 0645. DC HIGUERA, A LINE AND INTRODUCER. UP WITH THERAPY. ENCOURAGED TO DO MORE ACITIVITY, TOO DROWSY. BETTER APPEPTITE THAN PREVIOUS DAY. PLAN TO TX TO CCU TMRO. VOID IN TOILET POST HIGUERA DC.
[2019-01-20] VITALS (21 sets, daily range): BP systolic 91–154; BP diastolic 48–76
--- NOTE | 2019-01-20 02:27 | NUR ---
PT IS NOW POST OP DAY 3 FROM CABG X3 ON 01/17. TONIGHT, PT HAS C/O CRAMPING IN UPPER LEFT ARM INTERMITTENTLY. ICE APPLIED AND NORCO GIVEN X2. EVEN WITHOUT THESE INTERVENTIONS, THE PT WOULD FALL ASLEEP QUICKLY AFTER SPEAKING WITH HER. PT SAID THE ICE HELPED SOME AND HAS BEEN ASLEEP SINCE LAST NORCO WAS GIVEN. PT GOT UP TO THE BATHROOM AT THE BEGINNING OF THE SHIFT, BUT LATER ON PT ASKED TO USE BEDPAN DUE TO CRAMPING IN ARM. PT ENCOURAGED TO USE ROM TO STRETCH OUT ARM. CHEST TUBE PATENT WITH NO LEAK. TITRATING DOWN PT'S O2 OVERNIGHT. PT ENCOURAGED TO USE INCENTIVE SPIROMETER, COUGH AND DEEP BREATHE. PT HAS SLEPT MOST OF THE NIGHT AND SEEMS UNMOTIVATED OVERALL. WILL CONTINUE TO MONITOR.
[2019-01-20 05:13] LABS: HEMATOCRIT 27.2 % (37.0-47.0); HEMOGLOBIN 9.1 gm/dL (12.0-15.0); MCH 29.3 pg (26.0-34.0); MCHC 33.4 g/dL (28.0-37.0); MCV 87.8 fL (80.0-100.0); RBC 3.1 mil/uL (4.20-5.00); RDW 13.1 % (10.5-14.5); WBC 11.2 thou/uL (4.0-11.0)
--- NOTE | 2019-01-20 12:31 | NUR ---
Pt is progressing postop cabg with possible transfer out of the ICU later today. She is now on 3liters of O2 and working with therapy. Plan is to stay with her dtr for a [facility] weeks [facility]. Will follow.
--- NOTE | 2019-01-20 13:58 | NUR ---
Note for 1030: Pt's chest tube removed by ALONSO Donohue for Dr Worrell. Pressure dressing was placed on the site. Pacemaker wires were also removed by Charanjit. Pt tolerated without incident. Pt instructed to rest for next hour and not get out of bed (by PA).
--- NOTE | 2019-01-20 14:01 | NUR ---
Pt has ambulated in halls twice with PT and OT. Pt up in bedside chair. Sinus rhythm. Family members here to visit. Report called to MARY Andres on [facility]. Pt assisted from chair to wheelchair by Leigha Palencia, ICU charge nurse and taken to room 205-P. Personal belongings packed and transferred with patient to new room by Leigha Palencia.
--- NOTE | 2019-01-20 16:40 | O ---
[facility] [place] [address] OPERATIVE REPORT Name: LEANNA CARBALLO Room #: 205-P ADM IN M.R.#: [id number] Admission: 01/12/19 ������������������ Attend Phys: Waldo Yang MD Discharge: ������������������ Date of : 55 Report #: [id number] THIS REPORT FOR: //name// CC: [facility] physician/PCP Waldo Yang DATE OF SERVICE: 01/17/2019 PREOPERATIVE DIAGNOSIS: Coronary artery disease. POSTOPERATIVE DIAGNOSIS: Coronary artery disease. OPERATION: Coronary artery bypass x 3 including left internal mammary artery to left anterior descending artery, saphenous vein to marginal and saphenous vein to posterior descending artery and endoscopic harvest, left greater saphenous vein. SURGEON: Ronal Worrell M.D. SURGICAL INSTRUMENTS INSPECTOR: ALONSO Epps ANESTHESIA: General. INDICATIONS: The patient is a 63-year-old with angina at low levels of exertion. Cardiac catheterization shows important 3-vessel disease including a 99% proximal circumflex stenosis, a 70% mid left anterior descending and a 90% posterior descending stenosis. Left ventricular function is satisfactory. The patient was catheterized by Dr. Hall. FINDINGS AND TECHNIQUE: After general anesthesia was established, left greater saphenous vein was harvested and prepared for use as a conduit. Exposure was obtained through median sternotomy. Left internal mammary artery was harvested from chest wall. Pericardial well was made. Cannulation sutures were placed. Heparin was given. Aorta was cannulated. Right atrium was cannulated. Cardioplegia needle was positioned in the aortic root. Retrograde cardioplegia catheter was placed in the coronary sinus. Cardiopulmonary bypass was established. The aorta was cross clamped. Antegrade, then retrograde cardioplegia were given. Ice was poured into the pericardial well. The heart was stopped. During electromechanical arrest, the distal anastomoses were performed and end-to-side anastomosis was made between vein and the posterior descending artery. This was a 1.5 mm vessel, but it was diffusely diseased. Cold cardioplegia was given. A separate segment of vein was sewn in end-to-side fashion to the marginal artery. This was a 1.7 mm vessel, it was diffusely [facility] [address] [place] [address] OPERATIVE REPORT Name: LEANNA CARBALLO Room #: 205-P [facility] IN .R.#: [id number] Admission: 01/12/19 ������������������ Attend Phys: Waldo Yang MD Discharge: ������������������ Date of : 55 Report #: [id number] diseased as well. Cold cardioplegia was given. Left internal mammary artery was sewn in end-to-side fashion to the left anterior descending artery. The patency of this vessel was checked with the temperature technique. LAD was a 1.6 mm vessel and was diffusely diseased. Cold cardioplegia was given. Two proximal anastomoses were performed. When these were complete, warm retrograde cardioplegia was given followed by warm continuous blood to the coronary sinus. When this infusion was complete, the crossclamp was removed, de-airing maneuvers were performed and the anastomoses were inspected and found to be satisfactory. As the patient warmed, nice cardiac activity resumed, chest tubes and pacing wires were placed, a marker was placed around the proximal anastomoses. When the patient was warmed, he was weaned from cardiopulmonary bypass. Venous cannula was removed, protamine was given, the aortic cannula was removed. Flows were measured in the bypass grafts. When hemostasis was satisfactory, chest was irrigated with antibiotic solution and closed in the usual fashion. The patient was taken to the Intensive Care Unit in good condition, having tolerated the procedure well. All counts were reported as correct. ��������������������������������������������� <ELECTRONICALLY SIGNED> ���������������������������������������� By: Ronal Worrell MD ��������������������������������������������� 01/20/19 1640 1616 1946 Ronal Worrell MD /nt
--- NOTE | 2019-01-20 19:10 | NUR ---
TRANFERED FROM ICU AT 1400, ALERT AND ORIENTED X4. SR AND VSS. AFEBRILE. UP WITH STAND BY ASSIST. ASSESSMENT DOCUMENTED, AND PATIENT REPORTED PAIN AT INCISION SITE, AND DIZZINESS WHEN UP. EXTRA FALL RISK PRECAUTION INPLACE AND WILL CONTINUE WITH POC.
[2019-01-21 03:09] VITALS: BP 103/52
[2019-01-21 05:31] LABS: HEMATOCRIT 28.7 % (37.0-47.0); HEMOGLOBIN 9.5 gm/dL (12.0-15.0); MCH 29.5 pg (26.0-34.0); MCHC 33.3 g/dL (28.0-37.0); MCV 88.8 fL (80.0-100.0); RBC 3.23 mil/uL (4.20-5.00); RDW 13.4 % (10.5-14.5); WBC 8.6 thou/uL (4.0-11.0)
[2019-01-21 05:40] LABS: CALCIUM 9.2 mg/dL (8.5-10.1); CREATININE 0.6 mg/dL (0.6-1.0); POTASSIUM 3.9 mmol/L (3.5-5.1)
[2019-01-21 07:30] VITALS: BP 124/66
--- NOTE | 2019-01-21 08:02 | NUR ---
ASSESSMENTS CHARTED. POD 3 PATIENT GETTING UP AND DOWN WITH STERNAL PRECAUTIONS. STILL GETTING DIZZY WITH MOVEMENT AND POSITION CHANGE. PLAN OF CARE CONTINUE TO GET STRONGER, WORK TO REDUCE DIZZINESS.
--- NOTE | 2019-01-21 10:26 | NUR ---
Follow up: S/P CABG on 01/17. Has tranferred out of ICU. Visit this am, sitting up in chair, eyes closed, did not want to speak much. Breakfast untouched. Obtained some food preferences and provided with menu. A1C 5.8. No significant wt changes. Not appropriate for nutrition education at this time but will try again next week. Low nutrition risk
[2019-01-21 11:40] VITALS: BP 130/79
--- NOTE | 2019-01-21 12:15 | EKG ---
[address] [place] [address] ELECTROCARDIOGRAM REPORT Name: CARBALLOLEANNA Room #: 205- ADM IN M.R.#: [id number] ������������������ Admission: 01/12/19 ������������������ Attend Phys: Waldo Yang MD Discharge: ������������������ Date of : 55 Report #: [id number] ����������������������������������������������������������������� [id number] THIS REPORT FOR: //name// [facility] Test Date: 2019-01-21 Test Time: 05:50:53 Pat Name: LEANNA CARBALLO Department: Room: 205 Gender: F Orthodontist: MILTON : 1955 Requested By: Mk Quintanilla Order Number: [id number] MD: Humza Theodore Measurements Intervals Jarratt Rate: 70 P: 135 [place]: 138 QRS: 195 QRSD: 89 T: 106 QT: 413 QTc: 446 Interpretive Statements Limb lead reversal Sinus rhythm Poor R wave progression Nonspecific T abnrm, anterolateral leads Compared to ECG 01/18/2019 07:57:59 No significant change was found Electronically Signed On 01-21-2019 12:15:36 CDT by Humza Theodore [email or web address] ��������������������������������������������� <ELECTRONICALLY SIGNED> ���������������������������������������� By: Humza Theodore MD, [facility] ��������������������������������������������� 01/21/19 1215 0550 0550 Humza Theodore MD, [facility] /EPI
[2019-01-21 15:45] VITALS: BP 114/57
--- NOTE | 2019-01-21 16:32 | NUR ---
ASSESSMENT CHARTED - MEDS PER MAR - PT WITH LITTLE APPITITE - EATING VERY LITTLE - FLUIID INTAKE ADEQUATE - PT UP TOT BATHROOM TO VOID - AMBUALTES WITH THE USE OF WALKER - SEEN BY OCC AND PHYS THERAPY TODAY - PATIENT SHOWERED AND BALTAZAR DRESSING CHANGED. DRESSING TO HARVEST SITES ON L LEG CHANGED WHERE CHEST TUBE SITE - PT OFFERED PAIN MEDICATION - SHE REFUSED STATING IT MAKES HER TOO SLEEPY. AMBULATED IN THE [facility] WITH CARDIAC REHAB AND PHYS THERAPY TODAY. UP TO THE CHAIR. ACCUCHECKS D/C'D NO CO'S AT THE PRESENT TIME, RESTING IN BED WITH EYES CLOSED.
[2019-01-21 19:35] VITALS: BP 136/65
[2019-01-22 04:00] VITALS: BP 112/63
--- NOTE | 2019-01-22 05:13 | NUR ---
ASSUMED PT CARE AT 1900 WITH BEDSIDE REPORT TAKEN. PT IS ALERT AND ORIENTED WITH NO SIGN OF DISTRESS NOTED IN PT. NO FAMILY AT BEDSIDE. ASSESSMENT COMPELETED AND CHARTED. PT IS STABLE AFTER SURGERY, DRESSING STILL INTACT. NO PAIN REPORTED. SCHEDULED MEDS AMDINISTERED TO PT. PT TOLERATED PO INTAKE. NO SIGN OF DISTRESS NOTED. PT IS STABLE THROUGHOUT THE NIGHT. DAUGHTER AT BEDSIDE. DENIES ANY FURTHER NEEDS AT THIS TTME.
[2019-01-22 07:30] VITALS: BP 122/63
[2019-01-22 11:35] VITALS: BP 115/62
[2019-01-22 15:25] VITALS: BP 104/58
--- NOTE | 2019-01-22 16:29 | NUR ---
ASSESSMENT CHARTED - MEDS PER NOV - GIVEN TYLENOL FOR CO'S OF GENERALIZED PAIN WITH GOOD RELEIF. PT STARTED ON ANTIVERT FOR CO'S OF DIZZINESS THIS SHIFT. GIVEN X 2 DOSES PATIENT STATES SHE FEELS IT MAY BE HELPING A LITTLE. ALFONSO SMALL AMOUNT OF DIET - PT ATE A 6 INCH SUBWAY SANDWICH FOR LUNCH - FLUID INTAKE ADEQUATE. UP TO THE CHAIR FOR THE DAY - AMBULATES TO THE BATHROOM WITH THE USE OF WALKER - SEEN BY PHYS/OCC THERAPY THIS AM. NO CO'S AT THE PRESENT TIME.
[2019-01-22 20:00] VITALS: BP 117/65
[2019-01-23 04:16] VITALS: BP 108/60
--- NOTE | 2019-01-23 06:50 | NUR ---
ASSUMED PT CARE AT 1900 WITH NO SIGN OF DISTRESS NOTED IN PT. PT IS SLEEPING IN BED, AND FAMILY AT BEDSIDE. PT IS STABLE. NO SIGN OF DISTRESS NOTED IN PT. ASSESSMENT DONE AND CHARTED, SCHEDULED MEDS ADMINISTERED TO PATIENT. FAMILY AT BEDSIDE. PT IS STABLE THROUGHOUT THE NIGHT. DENIES ANY NEEDS AT THIS TIME. NO PAIN REPORTED. DIZZINESS REDUCED. PT IS STABLE.
[2019-01-23 07:30] VITALS: BP 122/69
[2019-01-23 12:00] VITALS: BP 122/57
--- NOTE | 2019-01-23 15:49 | NUR ---
ASSUMED CARE OF PT AT SHIFT CHANGE. ASSESSMENTS CHARTED. MEDS GIVEN PER NOV. PT ALERT AND ORIENTED, VSS, C/O PAIN IN RIGHT SIDE AND FROM STERNAL INCISION, MANAGED WITH PO TYLENOL. EDUCATED PT ON PAIN MEDS OF HIGHER POTENCY, PT REFUSED AND JUST WANTS TYLENOL. PT UP X1 ASSIST, WALKED AROUND THE UNIT TODAY, TOLERATING WELL. DAUGHTER AT BEDSIDE THROUGHOUT SHIFT. O2 SATS WNL ON ROOM AIR, NO S/SX OF CARDIAC OR RESP DISTRESS NOTED. PT IS MOTIVATED FOR DC HOME. PT PROGRESSING TOWARDS GOALS. DENIES CONCERNS AT THIS TIME. WILL CONTINUE TO MONITOR AND FOLLOW POC.
[2019-01-23 16:30] VITALS: BP 105/55
[2019-01-23 19:20] VITALS: BP 134/64
--- NOTE | 2019-01-24 04:55 | NUR ---
AASUMED PT CARE AT 1900 WITH NO SIGN OF DISTRESS NOTED IN PT. PT IS ALERT AND ORIENTED WITH FAMILY AT BEDSIDE. PT IS STABLE, SCHEDULED MEDS ADMINISTERED TO PT. PT IS STABLE THROUGHOUT THE NIGHT. DENIES ANY NEEDS AT THIS TIME.
[2019-01-24 08:00] VITALS: BP 144/68
[2019-01-24] MEDS ORDERED: ASPIR 8181 MG PO (08:08)
[2019-01-24] MEDS ORDERED: METOPROLOL SUCC25 M1 PO (08:08)
[2019-01-24] MEDS ORDERED: COZAAR 25 MG TA25 M1 PO (08:08)
[2019-01-24 10:39] VITALS: BP 134/64
--- NOTE | 2019-01-24 11:27 | NUR ---
ASSUMED CARE AT 0700. PATIENT IN BED AWAKE AND ALERT. NO COMPLAINTS OF PAIN, NAUSEA, DIZZYNESS. PLAN OF CARE IS TO GO HOME TODAY. 10 AM STERNAL DRESSING REMOVED BY JOSE ARMANDO HERNANDEZ. INSICION APPROXIMATED, WITH SUTURES IN PLACE. MINIMAL REDNESS AND SURROUNDING AREA INTACT. PATIENT EDUCATED ON CARE OF SURGICAL INCISION, SHOWER TAKEN, IV REMOVED AND DISCHARGE EDUCATION COMPLETED. DISCHARGED HOME IN STABLE CONDITION BY WHEELCHAIR WITH DAUGHTER AT 1200 NOON.
[2019-01-24 12:16] VITALS: BP 134/64
== END 2019-01-24 12:17 | disposition home or self-care (01) | DRG 233 ==
LOC: 2N 20:48 → TBA 01-17 08:26 → ICU 01-17 13:48 → 2N 01-20 14:06 → ENTRNSPT 01-24 12:07 → EDTRNSPTSTS 01-24 12:09 → 2N 01-24 12:17
PROVIDERS: Internal Medicine Cardiovascular Disease; Nurse Practitioner Acute Care; Physician Assistant; Surgery Vascular Surgery; ADMIT Internal Medicine
PROC: B2111ZZ Fluoroscopy of Multiple Coronary Arteries using Low Osmolar Contrast (ICD-10-PCS; principal; 2019-01-13)
PROC: 4A023N7 Measurement of Cardiac Sampling and Pressure, Left Heart, Percutaneous Approach (ICD-10-PCS; principal; 2019-01-13)
PROC: 5A1221Z Performance of Cardiac Output, Continuous (ICD-10-PCS; 2019-01-17)
PROC: 06BQ4ZZ Excision of Left Saphenous Vein, Percutaneous Endoscopic Approach (ICD-10-PCS; 2019-01-17)
PROC: 021109W Bypass Coronary Artery, Two Arteries from Aorta with Autologous Venous Tissue, Open Approach (ICD-10-PCS; 2019-01-17)
PROC: 02100Z9 Bypass Coronary Artery, One Artery from Left Internal Mammary, Open Approach (ICD-10-PCS; 2019-01-17)
DX: I25.110 Atherosclerotic heart disease of native coronary artery with unstable angina pectoris (principal); I21.4 Non-ST elevation (NSTEMI) myocardial infarction; D62 Acute posthemorrhagic anemia; E87.1 Hypo-osmolality and hyponatremia; I10 Essential (primary) hypertension; E78.5 Hyperlipidemia, unspecified; K21.9 Gastro-esophageal reflux disease without esophagitis; K59.00 Constipation, unspecified; I65.23 Occlusion and stenosis of bilateral carotid arteries; H81.10 Benign paroxysmal vertigo, unspecified ear; E66.9 Obesity, unspecified; I95.9 Hypotension, unspecified; I73.9 Peripheral vascular disease, unspecified; Z96.652 Presence of left artificial knee joint; Z68.38 Body mass index [BMI] 38.0-38.9, adult; Z86.73 Personal history of transient ischemic attack (TIA), and cerebral infarction without residual deficits; Z79.899 Other long term (current) drug therapy; Z82.49 Family history of ischemic heart disease and other diseases of the circulatory system; Z80.3 Family history of malignant neoplasm of breast
CPT/HCPCS: 10078; 10081; 10203; 47000; 47001; 47002; 47297; 48888; 50010; 50249; 50409; 50456; 50498; 50668; 51301; 52131; 52259; 52314; 53327; 53358; 54118; 55415; 56524; 56525; 56526; 56527; 56528; 56531; 56534; 56668; 56760; 56898; 57093; 57116; 62110; 62950; 65003; 65020; 65047; 65090; 65120; 65135

== ENCOUNTER 2019-01-27 17:31 | Emergency (ER) | payer OTHER ==
[~2019-01-27] VITALS: Ht 154.9 cm; Wt 93.9 kg
[~2019-01-27 17:31] MED LIST changes: +ASPIR 8181 MG PO; +ATORVASTATIN CA40 MG PO; +COZAAR 25 MG TA25 M1 PO; +CYCLOBENZAPRINE5 MG PO; +HYDROCHLOROTHIA25 M2 PO; +LIDOCAINE PAIN1 EACH TP; +METOPROLOL SUCC25 M1 PO; +NAPROSYN500 MG PO; +NORVASC5 MG PO; +OMEPRAZOLE40 MG PO; +ZESTRIL40 MG PO
[2019-01-27 19:15] VITALS: BP 143/87
== END 2019-01-27 19:15 | disposition home or self-care (01) ==
LOC: ER 17:31
DX: M79.605 Pain in left leg (principal); Z48.01 Encounter for change or removal of surgical wound dressing; I10 Essential (primary) hypertension; E78.5 Hyperlipidemia, unspecified; K21.9 Gastro-esophageal reflux disease without esophagitis